=== PATIENT | male | born 1960 | race Native Hawaiian/Other Pacific Islander ===

== ENCOUNTER → 2019-04-28 | Outpatient (CLI) | payer OTHER ==
--- NOTE | 2019-04-28 10:11 | US ---
EXAMINATION TYPE: US abdomen complete DATE OF EXAM: 04/28/2019 COMPARISON: NONE CLINICAL HISTORY: R10.32 left lower quadrant pain. LLQ pain. No previous surgeries. EXAM MEASUREMENTS: Liver Length: 15.9 cm Gallbladder Wall: 0.2 cm CHD: 0.3 cm Spleen: 10.5 cm Right Kidney: 11.5 x 5.7 x 6.2 cm Left Kidney: 11.2 x 5.3 x 6.9 cm Limited visualization due to overlying bowel gas Pancreas: Obscured by bowel gas Liver: wnl Gallbladder: wnl Evidence for sonographic Ortez's sign: neg CBD: Obscured by overlying bowel gas CHD: wnl Spleen: wnl Right Kidney: wnl Left Kidney: wnl Upper IVC: Obscured by overlying bowel gas Abd Aorta: Suboptimal visualization of proximal Aorta due to overlying bowel gas Kidneys show normal cortical medullary differentiation. There is no ascites. IMPRESSION: Exam somewhat limited. No significant abnormalities evident.
== END | disposition home or self-care (01) ==
LOC: RADUSWWP 09:16
PROVIDERS: ATTEND Physician Assistant
DX: R10.32 Left lower quadrant pain (principal)
CPT/HCPCS: 76700

== ENCOUNTER → 2021-02-21 | Outpatient (CLI) | payer BC ==
--- NOTE | 2021-02-21 13:58 | US ---
EXAMINATION TYPE: US kidneys/renal and bladder DATE OF EXAM: 02/21/2021 COMPARISON: 04/28/2019 CLINICAL HISTORY: 60-year-old male N20.0 CALCULUS OF KIDNEY. Pt states left flank pain x 1 month TECHNIQUE: Multiple sonographic images of the kidneys and bladder are obtained. FINDINGS: EXAM MEASUREMENTS: Right Kidney: 11.0 x 5.4 x 5.1 cm Left Kidney: 11.2 x 6.2 x 5.9 cm No hydronephrosis on either side. Bladder: wnl Bilateral Jets seen: Yes Sub Arc Operator notes:No abnormality visualized to account for pt's symptoms Attempted to call Dr's office with results at time of exam, no answer IMPRESSION: No hydronephrosis.
== END | disposition home or self-care (01) ==
LOC: RADUSWWP 12:43
PROVIDERS: ATTEND Family Medicine
DX: N20.0 Calculus of kidney (principal)
CPT/HCPCS: 76770